=== PATIENT | female | born 1985 | race Caucasian/White ===

== ENCOUNTER 2016-04-09 10:10 | Emergency (ER) | payer OTHER ==
[2016-04-09 10:32] VITALS: BP 122/76; PULSE 69; RESP 18; TEMP 97.4
[2016-04-09 10:57] LABS: Appearance,Urine Cloudy (Clear); Bacteria,Urine Rare /hpf; Bilirubin,Urine Negative (Negative); Glucose,Urine (UA) Negative (Negative); Ketones,Urine Negative (Negative); Leukocyte Esterase,Urine Large (Negative); Mucus,Urine Rare /hpf; Nitrite,Urine Negative (Negative); PH, Urine 5.5 (5.0-8.0); Particle Count 4224; Protein,Urine Negative (Negative); RBC,Urine 1 /hpf (0-5); Specific Gravity,Urine 1.002 (1.001-1.035); Squamous Epithelial Cell,Urine 9 /hpf (0-4); UA Billing (MACRO vs. MICRO) MICRO; Urobilinogen,Urine <2.0 mg/dL (<2.0); WBC,Urine 63 /hpf (0-5)
--- NOTE | 2016-04-09 11:13 | ED ---
Abdominal Pain HPI - General Chief Complaint: Abdominal Pain Stated Complaint: left side abdominal pain, painful urination Time Seen by Provider: 04/09/16 10:36 Source: patient, RN notes reviewed Mode of arrival: ambulatory Limitations: no limitations - History of Present Illness Initial Comments: 30-year-old female presents to emergency room chief complaint of dysuria. Patient states she developed this left-sided abdominal pain and pain with urination. Patient denies any blood in the urine patient denies any odor to urine. Patient denies vaginal discharge or drainage. Patient has no concerns for STDs. Patient states she was concerned she is a burning and pain so she thought that she should be seen. Patient states she has no back pain with this. Patient denies any nausea vomiting or fevers associated with this. Patient states she does have a history of UTIs in the past. Patient denies any recent fever, chills, shortness of breath, chest pain, back pain, nausea vomiting, numbness or tingling, constipation or diarrhea, headaches or visual changes, or any other current symptoms. - Related Data Previous Rx's Medication Instructions Recorded Ciprofloxacin HCl [Cipro] 500 mg PO Q12HR #14 tablet 04/09/16 Phenazopyridine [Pyridium] 100 mg PO TID #9 tablet 04/09/16 Allergies Allergy/AdvReac Type Severity Reaction Status Date / Time No Known Allergies Allergy Verified 04/09/16 10:37 Review of Systems ROS Statement: Those systems with pertinent positive or pertinent negative responses have been documented in the HPI. ROS Other: All systems not noted in ROS Statement are negative. Past Medical History Past Medical History: No Reported History History of Any Multi-Drug Resistant Organisms: None Reported Past Surgical History: Cholecystectomy Past Psychological History: No Psychological Hx Reported Smoking Status: Current every day smoker Past Alcohol Use History: None Reported Past Drug Use History: None Reported General Exam - General Exam Comments Initial Comments: General: The patient is awake and alert, in no distress, and does not appear acutely ill. Eye: Pupils are equal, round and reactive to light, extra-ocular movements are intact; there is normal conjunctiva bilaterally. No signs of icterus. Ears, nose, mouth and throat: There are moist mucous membranes and no oral lesions. Neck: The neck is supple, there is no tenderness. Cardiovascular: There is a regular rate and rhythm. No murmur, rub or gallop is appreciated. Respiratory: Lungs are clear to auscultation, respirations are non-labored, breath sounds are equal. No wheezes, stridor, rales, or rhonchi. Gastrointestinal: Soft, non-distended, reticulocyte tenderness of the abdomen without masses or organomegaly noted. There is no rebound or guarding present. No CVA tenderness. Bowel sounds are unremarkable. Back: There is no tenderness to palpation in the midline. There is no obvious deformity. No rashes noted. Musculoskeletal: Normal ROM, no tenderness, There is no pedal edema. There is no calf tenderness or swelling. Sensation intact. Pulses equal bilaterally 2+. Neurological: CN II-XII intact, There are no obvious motor or sensory deficits. Coordination appears grossly intact. Speech is normal. Skin: Skin is warm and dry and no rashes or lesions are noted. Psychiatric: Cooperative, appropriate mood & affect, normal judgment. Limitations: no limitations Course Vital Signs 04/09/16 10:30 Temperature 97.4 F L Pulse Rate 69 Respiratory 18 Rate Blood Pressure 122/76 O2 Sat by Pulse 99 Oximetry Medical Decision Making - Medical Decision Making 30-year-old female presents to emergency room chief complaint of dysuria. This time patient does appear to be suffering from a UTI. We will send patient on Pyridium as well as Cipro for the pain. He did discuss her temperature was follow-up. We discussed all patient's and family's questions. They stated they understood. This and will be discharged home. - Lab Data Lab Results 04/09/16 04/09/16 Range/Units 10:36 10:36 Urine Color Colorless Urine Appearance Cloudy H (Clear) Urine pH 5.5 (5.0-8.0) Ur Specific [place] 1.002 (1.001-1.035) Urine Protein Negative (Negative) Urine Glucose (UA) Negative (Negative) Urine Ketones Negative (Negative) Urine Blood Trace H (Negative) Urine Nitrate Negative (Negative) Urine Bilirubin Negative (Negative) Urine Urobilinogen <2.0 (<2.0) mg/dL Ur Leukocyte Esterase Large H (Negative) Urine RBC 1 (0-5) /hpf Urine WBC 63 H (0-5) /hpf Ur Squamous Epith Cells 9 H (0-4) /hpf Urine Bacteria Rare H (None) /hpf Urine Mucus Rare H (None) /hpf Urine HCG, Qual Not Detected (Not Detectd) Disposition Clinical Impression: UTI (urinary tract infection) Disposition: HOME SELF-CARE Condition: Stable Instructions: Urinary Tract Infection in Women (ED) Additional Instructions: Please use medication as discussed. Please follow up with family doctor if symptoms have not improved over the next two days. Please return to the emergency room if your symptoms increase or worsen or for any other concerns. Prescriptions: Ciprofloxacin HCl [Cipro] 500 mg PO Q12HR #14 tablet Phenazopyridine [Pyridium] 100 mg PO TID #9 tablet Referrals: Rica Alvarez MD [Primary Care Provider] - 1-2 days Time of Disposition: 11:13
== END 2016-04-09 11:21 | disposition home or self-care (01) ==
LOC: EC 10:10
DX: N39.0 Urinary tract infection, site not specified (principal); F17.200 Nicotine dependence, unspecified, uncomplicated
CPT/HCPCS: 81001; 81025; 99284

== ENCOUNTER → 2022-12-13 | Outpatient (CLI) | payer OTHER ==
--- NOTE | 2022-12-13 10:36 | USB ---
Reason for Exam: Follow-up at short interval from prior study. Patient History: Menarche at age 13. First Full-Term at age 22. Patient has history of breast feeding. Patient used Hormonal Contraceptives for 6 years. Risk Values: Stephanie 5 year model risk: 0.3%. NCI Lifetime model risk: 9.2%. Technique: Method: Targeted. Prior Study Comparison: 06/08/2022 Bilateral MG 3D diag mammo w/cad [facility], [facility]. Findings: The upper section of the breast of the left breast, the axilla of the left breast and the retroareolar of the left breast were scanned. Targeted ultrasound superior aspect of the left breast from 12:00 to 1:00 including the subareolar region and axilla. The previously seen small 5 mm nodule, suspected tiny intramammary lymph node is no longer identified. No solid or cystic lesion. Overall Assessment: Probably benign, BI-RAD 3 Management: Diagnostic Mammogram of both breasts in 6 months. Total one-year follow-up from 06/08/2022. Patient can continue monthly self breast exams. Results were given to the patient verbally at the time of exam. Electronically signed and approved by: Jessica Valdez M.D. Radiologist
== END | disposition home or self-care (01) ==
LOC: RADUSWWP 09:52
PROVIDERS: ATTEND Family Medicine
DX: N60.02 Solitary cyst of left breast (principal)

== ENCOUNTER → 2023-06-19 | Outpatient (CLI) | payer OTHER ==
--- NOTE | 2023-06-19 09:01 | MM ---
Reason for Exam: Follow-up at short interval from prior study. Last screening mammogram was performed 12 month(s) ago. Patient History: Menarche at age 13. First Full-Term at age 22. Premenopausal. Patient has history of breast feeding. Patient used Hormonal Contraceptives for 6 years. Maternal grandmother had breast cancer. Last menstrual period: 05/21/2023 Risk Values: Stephanie 5 year model risk: 0.4%. NCI Lifetime model risk: 9.2%. Prior Study Comparison: 06/08/2022 Bilateral MG 3D diag mammo w/cad [facility], [facility]. 06/08/2022 Bilateral US breast limited [facility], [facility]. 12/13/2022 Left US breast limited LT, [facility]. Tissue Density: There are scattered areas of fibroglandular density. Findings: Analyzed By CAD. Chronic nodularity 12:00 anterior left breast. Global asymmetry posterior 12:00 right breast remains unchanged. No significant change from prior exam. Overall Assessment: Incomplete: need additional imaging evaluation, BI-RAD 0 Management: Diagnostic Breast Ultrasound of both breasts. As ordered by the clinician. Electronically signed and approved by: Jessica Valdez M.D. Radiologist
--- NOTE | 2023-06-19 09:52 | USB ---
Reason for Exam: Additional evaluation requested from prior study. Patient History: Menarche at age 13. First Full-Term at age 22. Premenopausal. Patient has history of breast feeding. Patient used Hormonal Contraceptives for 6 years. Maternal grandmother had breast cancer. Risk Values: Stephanie 5 year model risk: 0.4%. NCI Lifetime model risk: 9.2%. Technique: Method: Targeted. Doppler: Color. Patient Position: RPO. Prior Study Comparison: 06/08/2022 Bilateral MG 3D diag mammo w/cad [facility]RIST[facility], [facility]. 06/08/2022 Bilateral US breast limited [facility], [facility]. 12/13/2022 Left US breast limited LT, [facility]. Findings: The upper section of the breast of the left breast, the axilla of the left breast and the retroareolar of the left breast were scanned. Targeted ultrasound 12:00 left breast at the site of previously identified abnormality seen on 06/08/2022 but could not be identified on 12/13/2022. Additional scanning of the subareolar region and axilla. * At the 12:00 position, 3 cm from the nipple, there is an oval heterogeneous hypoechoic structure measuring 5 x 5 x 3 mm. This is unchanged compared to 06/08/2022 and favors a benign etiology. * Additional benign 3 mm cyst just adjacent at 12:00. * No other solid or cystic lesion or axillary lymphadenopathy. As the lesion was identified, bilateral whole breast ultrasounds were not performed. As the areas appearance on mammogram, an additional one-year follow-up mammogram is recommended to demonstrate 2 years of stability. Overall Assessment: Probably benign, BI-RAD 3 Management: Diagnostic Mammogram of both breasts in 1 year. As a total two-year follow-up of the left breast finding. A clinical breast exam by your physician is recommended on an annual basis and results should be correlated with mammographic findings. This exam should not preclude additional follow-up of suspicious palpable abnormalities. Results were given to the patient verbally at the time of exam. Electronically signed and approved by: Jessica Valdez M.D. Radiologist
== END | disposition home or self-care (01) ==
LOC: RADMAMWWP 08:40
PROVIDERS: ATTEND Family Medicine
DX: R92.323 Mammographic fibroglandular density, bilateral breasts (principal); Z80.3 Family history of malignant neoplasm of breast
CPT/HCPCS: 77062; 77066

== ENCOUNTER 2023-10-07 07:24 | Emergency (ER) | payer OTHER ==
[2023-10-07] MEDS: predniSONE 20 MG TAB PO STA (08:11)
[2023-10-07] MEDS: ORPHENADRINE 30 MG/ML 2 ML VIAL IM STA (08:11)
[2023-10-07] MEDS: KETOROLAC 15 MG/ML 1 ML VIAL IM STA (08:12)
--- NOTE | 2023-10-07 08:12 | ED ---
General Adult HPI - General Chief complaint: Extremity Injury, Lower Stated complaint: R Leg Pain Time Seen by Provider: 10/07/23 07:35 Source: patient Mode of arrival: ambulatory Limitations: no limitations - History of Present Illness Initial comments: 38-year-old female presents emergency department with right buttock pain. States that the pain has been going on since Saturday. She does have recurrent issues with this especially when she starts her menstrual cycle. States that the pain started in her buttock and radiates down the lateral aspect of her leg. It goes all the way to her ankle. States she has a throbbing burning sensation from her knee to her ankle. She denies any trauma. No lower back pain. Denies any bladder or bowel incontinence. No fevers. No history of intravenous drug use. Denies concern for . She denies any anterior abdominal pain. She went to an urgent care yesterday who placed her on Motrin and [place]. She states that both of these medications have not helped her symptoms. She did receive a Toradol shot and this did help. - Related Data Previous Rx's Medication Instructions Recorded Ciprofloxacin HCl [Cipro] 500 mg PO Q12HR #14 tablet 04/09/16 Phenazopyridine [Pyridium] 100 mg PO TID #9 tablet 04/09/16 Cyclobenzaprine [Flexeril] 10 mg PO TID PRN #30 tab 10/07/23 predniSONE [Deltasone] 20 mg PO BID #10 tab 10/07/23 Allergies Allergy/AdvReac Type Severity Reaction Status Date / Time No Known Allergies Allergy Verified 10/07/23 07:31 Review of Systems ROS Statement: Those systems with pertinent positive or pertinent negative responses have been documented in the HPI. ROS Other: All systems not noted in ROS Statement are negative. Past Medical History Past Medical History: No Reported History History of Any Multi-Drug Resistant Organisms: None Reported Past Surgical History: Cholecystectomy Past Psychological History: No Psychological Hx Reported Smoking Status: Current every day smoker Past Alcohol Use History: None Reported Past Drug Use History: Marijuana General Exam Limitations: no limitations General appearance: alert, in no apparent distress Head exam: Present: atraumatic, normocephalic, normal inspection Eye exam: Present: normal appearance, PERRL, EOMI. Absent: scleral icterus, conjunctival injection, periorbital swelling ENT exam: Present: normal exam, mucous membranes moist Neck exam: Present: normal inspection. Absent: tenderness, meningismus, lymphadenopathy Respiratory exam: Present: normal lung sounds bilaterally. Absent: respiratory distress, wheezes, rales, rhonchi, stridor Cardiovascular Exam: Present: regular rate, normal rhythm, normal heart sounds. Absent: systolic murmur, diastolic murmur, rubs, gallop, clicks GI/Abdominal exam: Present: soft, normal bowel sounds. Absent: distended, tenderness, guarding, rebound, rigid Extremities exam: Present: normal inspection, full ROM, normal capillary refill. Absent: tenderness, pedal edema, joint swelling, calf tenderness Back exam: Present: other (tenderness right si joint. 5/5 muscle strength bilateral lower extremities) Neurological exam: Present: alert, oriented X3, CN II-XII intact Psychiatric exam: Present: normal affect, normal mood Skin exam: Present: warm, dry, intact, normal color. Absent: rash Course Vital Signs 10/07/23 10/07/23 07:29 08:21 Temperature 98 F 97.9 F Pulse Rate 69 56 L Respiratory 22 18 Rate Blood Pressure 123/78 117/82 O2 Sat by Pulse 100 98 Oximetry Medical Decision Making - Medical Decision Making Was pt. sent in by a medical professional or institution (, PA, COUNTER MANAGER, urgent care, hospital, or care home...) When possible be specific @ -No Did you speak to anyone other than the patient for history (EMS, parent, family, police, friend...)? What history was obtained from this source @ -No Did you review nursing and triage notes (agree or disagree)? Why? @ -I reviewed and agree with nursing and triage notes Were old charts reviewed (outside hosp., previous admission, EMS record, old EKG, old radiological studies, urgent care reports/EKG's, care home records)? Report findings @ -No old charts were reviewed Differential Diagnosis (chest pain, altered mental status, abdominal pain women, abdominal pain men, vaginal bleeding, weakness, fever, dyspnea, syncope, headache, dizziness, GI bleed, back pain, seizure, CVA, palpatations, mental health, musculoskeletal)? @ -Differential Back Pain: Strain, zoster, cauda equina syndrome, epidural abscess, vertebral osteomyelitis, discitis, fracture, subluxation, disc herniation, DJD, spinal stenosis, dissection, AAA, pancreatitis, peptic ulcer disease, pyelonephritis, kidney stone, this is not meant to be an all-inclusive list. EKG interpreted by me (3pts min.). @Not done X-rays interpreted by me (1pt min.). @ -None done CT interpreted by me (1pt min.). @ -None done U/S interpreted by me (1pt. min.). @ -None done What testing was considered but not performed or refused? (CT, X-rays, U/S, labs)? Why? @ -None What meds were considered but not given or refused? Why? @ -None Did you discuss the management of the patient with other professionals (professionals i.e. , PA, COUNTER MANAGER, lab, RT, psych nurse, social work nurse, director of supply chain, teacher, correction officer penitentiary, senior case manager)? Give summary @ -No Was smoking cessation discussed for >3mins.? @ -No Was critical care preformed (if so, how long)? @ -No Were there social determinants of health that impacted care today? How? (Homelessness, low income, unemployed, alcoholism, drug addiction, transportation, low edu. Level, literacy, decrease access to med. care, long-term, rehab)? @ -No Was there de-escalation of care discussed even if they declined (Discuss DNR or withdrawal of care, Hospice)? DNR status @ -No What co-morbidities impacted this encounter? (DM, HTN, Smoking, COPD, CAD, Cancer, CVA, ARF, Chemo, Hep., AIDS, mental health diagnosis, sleep apnea, morbid obesity)? @ -None Was patient admitted / discharged? Hospital course, mention meds given and route, prescriptions, significant lab abnormalities, going to OR and other pertinent info. @ -Upon arrival patient seen and evaluated in room 32. Thorough history and physical exam was performed patient's symptoms consistent with sciatica. She will be treated with a steroid pack and muscle relaxers. Instructed to take the medications as directed. She is not allowed to take any NSAIDs while on the steroids. Rest. No heavy lifting or bending. Please warm compresses to the site. Follow-up with your doctor for further treatment options and return for any new or worsening symptoms. Patient agreeable plan was discharged in stable condition Undiagnosed new problem with uncertain prognosis? @ -No Drug Therapy requiring intensive monitoring for toxicity (Heparin, Nitro, Insulin, Cardizem)? @ -No Were any procedures done? @ -No Diagnosis/symptom? @ -Acute lumbar radiculopathy, acute sciatica Acute, or Chronic, or Acute on Chronic? @ -Acute Uncomplicated (without systemic symptoms) or Complicated (systemic symptoms)? @ -Complicated Side effects of treatment? @ -No Exacerbation, Progression, or Severe Exacerbation? @ -No Poses a threat to life or bodily function? How? (Chest pain, [place], [place], pneumonia, PE, COPD, DKA, ARF, appy, cholecystitis, CVA, Diverticulitis, Homicidal, Suicidal, threat to staff... and all critical care pts) @ -No Disposition Clinical Impression: Sciatica Disposition: HOME SELF-CARE Condition: Stable Instructions (If sedation given, give patient instructions): Sciatica (ED) Additional Instructions: Please start the steroids tomorrow. Take the muscle relaxer as needed. You may also take the [place] but make sure it is spaced out from the muscle relaxer by at least 2 hours. Follow-up with your primary care doctor for further imaging and further treatment options to include physical therapy and injections. Return for any new or worsening symptoms Prescriptions: predniSONE [Deltasone] 20 mg PO BID #10 tab Cyclobenzaprine [Flexeril] 10 mg PO TID PRN #30 tab PRN Reason: Muscle Spasm Is patient prescribed a controlled substance at d/c from ED?: No Referrals: Viola Vang DO [Primary Care Provider] - 1-2 days Time of Disposition: 08:14
[2023-10-07 08:25] VITALS: BP 117/82; PULSE 56; RESP 18; TEMP 97.9
== END 2023-10-07 08:53 | disposition home or self-care (01) ==
LOC: EC 07:24
DX: M54.31 Sciatica, right side (principal); M54.16 Radiculopathy, lumbar region; F17.200 Nicotine dependence, unspecified, uncomplicated
CPT/HCPCS: 99283 ×2; 96372 ×3; J2360; J1885; J7512

== ENCOUNTER → 2023-11-14 | Outpatient (CLI) | payer OTHER ==
--- NOTE | 2023-12-11 16:18 | XR ---
Site ID [facility] Patient Bibi Kramer M ID [id number] Age/Gender: 38Y, F Order # [id number] Procedure XR Hip Bilateral and AP pelvis Date 11/14/2023 10:40:22 AM Reason M54.16 RADICULOPATHY LUMBAR REGION EXAMINATION TYPE: XR Hip Bilateral and AP pelvis DATE OF EXAM: 12/11/2023 3:07 PM INDICATION: Patient age:Female; 38 years old; Reason for study: M54.16 RADICULOPATHY LUMBAR REGION; [facility]. COMPARISON: CT abdomen and pelvis 05/12/2010 TECHNIQUE: Both hips were examined in the frontal and lateral projections and a AP pelvis. FINDINGS: No evidence of any acute osseous pathology, joint dislocation, or soft tissue swelling. Spu rring of the bilateral greater trochanters. IMPRESSION: No acute osseous pathology.
--- NOTE | 2023-12-15 00:26 | XR ---
EXAMINATION TYPE: XR lumbar spine 2 or 3V DATE OF EXAM: 11/14/2023 CLINICAL HISTORY: Lumbar radiculopathy, lower back pain TECHNIQUE: Frontal and lateral views of the lumbar spine were obtained. Additional coned in L5-S1 lat eral view was obtained. COMPARISON: CT abdomen and pelvis 05/12/2010 FINDINGS: There are 5 lumbar type vertebral bodies identified. The lumbar spine shows satisfactory alignment w ithout evidence of acute fracture or dislocation. Vertebral body heights are within normal limits. There is disc space narrowing with endplate sclerosis and anterior aspect of the L4-L5. Bilateral fac et arthropathy at L4-L5 and L5-S1. The overlying soft tissue appears unremarkable. IMPRESSION: 1. No acute fracture or dislocation is seen in the lumbar spine. 2. Mild degenerative disc disease at L4-L5 with facet arthropathy at L4-L5 and L5-S1.
== END | disposition home or self-care (01) ==
LOC: RADXRMAIN 10:31
PROVIDERS: ATTEND Family Medicine
DX: M47.27 Other spondylosis with radiculopathy, lumbosacral region (principal); M51.16 Intervertebral disc disorders with radiculopathy, lumbar region
CPT/HCPCS: 72100; 73521